=== PATIENT | male | born 1975 | race Caucasian/White ===

== ENCOUNTER 2018-05-26 16:11 | Emergency (ER) | payer OTHER ==
[~2018-05-26] VITALS: Ht 170.2 cm; Wt 75.0 kg
[2018-05-26 16:26] VITALS: BP 135/87
[2018-05-26] MEDS ORDERED: LIDOCAINE 1%/EPI 1:200,000/PF 10 ML VIAL INJ ONE (16:45)
[2018-05-26] MEDS ORDERED: BACITRACIN 0.9 GM PACKET OINTMENT TP ONE (16:45)
[2018-05-26] MEDS ORDERED: KETOROLAC TROMETHAMINE 10 MG TABLET PO ONE (16:45)
[2018-05-26] MEDS ORDERED: POVIDONE-IODINE 10% 15 ML SOLUTION UD TP ONE (16:45)
[2018-05-26] MEDS ORDERED: PERTUSS(ACELL),DIPH,TET VAC/PF 0.5 ML VIAL IM ONE (18:15)
== END 2018-05-26 18:54 | disposition home or self-care (01) ==
LOC: EMS 16:12
DX: S61.411A Laceration without foreign body of right hand, initial encounter (principal); F12.90 Cannabis use, unspecified, uncomplicated; W25.XXXA Contact with sharp glass, initial encounter; Y93.89 Activity, other specified; Y92.89 Other specified places as the place of occurrence of the external cause; Y99.8 Other external cause status
CPT/HCPCS: 12004; 90471; 90715; 99283; J3490